=== PATIENT | female | born 1970 | race Caucasian/White ===

== ENCOUNTER 2020-11-16 10:39 | Emergency (ER) | payer OTHER ==
[~2020-11-16] VITALS: Ht 152.4 cm; Wt 45.4 kg
[2020-11-16 10:49] VITALS: BP 100/53
--- NOTE | 2020-11-16 10:57 | NUR ---
Patient discharged to [facility] in custody Written and verbal after care instructions given.
== END 2020-11-16 10:57 ==
LOC: ER 10:51
DX: Z02.89 Encounter for other administrative examinations (principal); Z59.0 Homelessness

== ENCOUNTER 2021-03-11 12:14 | Inpatient (IN) | payer MEDICARE, OTHER ==
[~2021-03-11] VITALS: Ht 149.9 cm; Wt 40.4 kg
[~2021-03-11 12:14] MED LIST: SORBITOL SOLUTION 30 ML PO ONE
--- NOTE | 2021-03-11 12:21 | NUR ---
PT CLAUDIO PA FROM SNF C/O DIFFUSE ABDOMINAL PAIN W/ NAUSEA. DENIES VOMITING, DENIES DIARRHEA. PT IS AAOX3. GOWNED AND PLACED ON MONITOR. VSS. AWAITING MD HENRIQUEZ.
--- NOTE | 2021-03-11 12:35 | NUR ---
DR ALSTON AT BEDSIDE FOR EVAL.
--- NOTE | 2021-03-11 12:55 | NUR ---
RADIOLOGY AT BEDSIDE FOR CHEST X RAY.
[2021-03-11] MEDS ORDERED: IV NS 0.9% 1,000 ML BAG IV ONE (13:00)
--- NOTE | 2021-03-11 13:02 | NUR ---
PT [facility] RADIOLOGY FOR ABDOMINAL CT SCAN VIA [facility].
[2021-03-11 13:07] LABS: BASOPHILS % (AUTO) 0.3 % (0.0-2.0); EOSINOPHILS % (AUTO) 2.6 % (0.0-6.0); HEMATOCRIT 37 % (33-45); HEMOGLOBIN 12.3 g/dL (11.5-14.8); LYMPHOCYTES # (AUTO) 1.7 /CMM (0.8-4.8); MEAN CORPUSCULAR HGB CONC 33 g/dl (31.0-36.0); MEAN CORPUSCULAR VOLUME 88 fL (82-100); MONOCYTES % (AUTO) 8.1 % (2.0-12.0); NEUTROPHILS # (AUTO) 8.8 /CMM (1.8-8.9); PLATELET COUNT (AUTO) 399 /CMM (150-450); RED BLOOD CELL COUNT(AUTO) 4.21 MIL/uL (4.0-5.2); WHITE BLOOD COUNT (AUTO) 11.8 K/uL (4.3-11.0)
[2021-03-11 13:20] LABS: CALCIUM, SERUM 9.3 mg/dL (8.5-10.1); CREATININE 0.6 mg/dL (0.6-1.3); POTASSIUM 3.5 mmol/L (3.5-5.1)
[2021-03-11 13:25] LABS: BILIRUBIN,DIRECT 0.2 mg/dL (0.0-0.2); BILIRUBIN,TOTAL 0.5 mg/dL (0.2-1.0); TOTAL PROTEIN, SERUM 8.3 g/dL (6.4-8.2)
[2021-03-11 13:41] LABS: BILIRUBIN,URINE SMALL (NEGATIVE); COLOR,URINE YELLOW (YELLOW); LEUKOCYTE ESTERASE ,URINE Negative (NEGATIVE); NITRITE, URINE Negative (NEGATIVE); PROTEIN,URINE 30 mg/dl (NEGATIVE); UGLUCOSE Negative (NEGATIVE)
[2021-03-11 13:53] LABS: BACTERIA,URINE Few /HPF (None Seen); SQUAMOUS EPITHELIAL CELL,UR Few /HPF (None Seen); WBC,URINE 0-2 /HPF (0-3)
--- NOTE | 2021-03-11 13:55 | NUR ---
CALLED RAY FOR READING
--- NOTE | 2021-03-11 14:30 | NUR ---
CALLED RAY FOR THE RADIOLOGIST TO CALL US BACK. DR. KIMBALL
[2021-03-11] MEDS ORDERED: ONDANSETRON HCL/PF 4 MG/2 ML VIAL IVP PRN (15:00)
[2021-03-11] MEDS ORDERED: MAG HYDROX/AL HYDROX/SIMETH 30 ML UDC PO PRN (15:00)
[2021-03-11] MEDS ORDERED: Z GUARD REMEDY 2 OZ OINT TP PRN (15:00)
[2021-03-11] MEDS ORDERED: MAGNESIUM CITRATE 296 ML BOTTLE PO ONE (15:00)
[2021-03-11] MEDS ORDERED: MAGNESIUM HYDROXIDE 30 ML UDC PO PRN (15:00)
[2021-03-11] MEDS ORDERED: BISACODYL SUPP (10 MG) 10 MG/SUPP.RECT SUPP.RECT RC ONE (15:00)
[2021-03-11] MEDS ORDERED: ACETAMINOPHEN 325 MG TABLET PO PRN (15:00)
[2021-03-11] MEDS ORDERED: NA PHOS,M-B/NA PHOS,DI-BA 1 EA ENEMA RC PRN (15:00)
[2021-03-11] MEDS ORDERED: BISA10SU11 RC (15:02)
[2021-03-11] MEDS ORDERED: MELA3TAB41 PO (15:02)
[2021-03-11] MEDS ORDERED: NA P133E RC (15:02)
[2021-03-11] MEDS ORDERED: MAGN400T26 PO (15:02)
[2021-03-11] MEDS ORDERED: METH5TAB4 PO (15:02)
[2021-03-11] MEDS ORDERED: ARIP30TA3 PO (15:02)
[2021-03-11] MEDS ORDERED: MAGN400O6 PO (15:02)
[2021-03-11] MEDS ORDERED: FENO54TA PO (15:02)
[2021-03-11] MEDS ORDERED: CHOL50009 PO (15:02)
[2021-03-11] MEDS ORDERED: ACET325T53 PO (15:02)
[2021-03-11] MEDS ORDERED: ALBU8.5H8 IH (15:02)
[2021-03-11] MEDS ORDERED: CYAN-51 PO (15:02)
[2021-03-11] MEDS ORDERED: CLON1TAB12 PO (15:02)
[2021-03-11] MEDS ORDERED: MULT-754 PO (15:02)
--- NOTE | 2021-03-11 15:45 | NUR ---
REPORT GIVEN TO ELIZABETH. AWAITING TRANSFER TO FLOOR.
--- NOTE | 2021-03-11 16:00 | NUR ---
MS/RN PT ADMITTED FROM SNF,WITH ABDOMINAL PAIN.PT IS ON ROOM AIR ,SAT O2-99%.V/S STABLE ,AFEBRILE. MED SURGE STATUS.IV-RIGHT FA #20.SKIN INTACT.PT IS AMBULATING IN THE ROOM.SKIN INTACT.
[2021-03-11] MEDS: IV NS 0.9% 1,000 ML IV PRN (16:19)
[2021-03-11 16:21] VITALS: BP 112/65
[2021-03-11] MEDS: HYDROCODONE/APAP 5/325MG TABLET PO PRN (16:51)
--- NOTE | 2021-03-11 17:00 | NUR ---
MS/RN PT C/O OF ABDOMINAL PAIN.NORCO PO GIVEN ORDERED.
[2021-03-11] MEDS ORDERED: PEG 3350/NA SULF,BICARB,CL/KCL 4,000 ML BOTTLE PO ONE (18:30)
--- NOTE | 2021-03-11 18:48 | NUR ---
MS/RN PT HAS 3 BM.PM CARE PROVIDED.WILL SIGN CONSENTS FOR COLONOSCOPY AND EGD LATTER.PT IS AGITATED.SCREAMING ON NURSES.
--- NOTE | 2021-03-11 19:30 | NUR ---
RN NOTE RECEIVED PATIENT IN BED, AO X 3-4, IN NO S/SX OF ACUTE DISTRESS AT THIS TIME. NO SOB NOTED. PATIENT'S BREATHING IS EVEN AND UNLABORED. SATURATION 97% ON ROOM AIR, SR ON THE MONITOR, HR IS 83. NOTED IV SITE AT RAC 20G, PATENT AND FLUSHING WELL, NO S/S OF INFECTION OR INFILTRATION, WITH IV FLUID OF NS INFUSING AT 75 ML/HR. SAFETY MEASURES IMPLEMENTED. PATIENT BED ALARM IS ON. HEAD OF BED ELEVATED. BED IS LOCKED, IN LOWEST POSITION AND SIDE RAILS UP. CALL LIGHT WITHIN REACH OF THE PATIENT. WILL CONTINUE TO MONITOR AND REASSESS FOR ANY CHANGES.
[2021-03-11 20:00] VITALS: BP 129/76
--- NOTE | 2021-03-11 21:30 | NUR ---
RN NOTE PT C/O ABDOMINAL PAIN. STATED, NORCO INEFFECTIVE, REQUESTING FOR IBUPROFEN INSTEAD SHE USED IT BEFORE AND WAS EFFECTIVE FOR HER. DR CONNELL WAS NOTIFIED. ORDERS RECEIVED FOR IBUPROFEN 400 MG PRN Q6H FOR MILD PAIN1-3. TREASURY ASSISTANT MADE AWARE
[2021-03-11] MEDS ORDERED: IBUPROFEN 400 MG TABLET PO PRN (22:00)
--- NOTE | 2021-03-11 23:45 | NUR ---
RN NOTE PT C/O 08/09 ABDOMINAL PAIN. STATED, ORAL MEDICATIONS SHE WAS GIVEN WERE INEFFECTIVE AND NOW REQUESTING FOR IV PAIN MEDS. DR CONNELL WAS NOTIFIED. ORDERS RECEIVED FOR MORPHINE 2 MG IV Q6H PRN. RECAPPER MADE AWARE
[2021-03-12] MEDS: MORPHINE SULFATE INJ 2 MG/ML DISP.SYRIN IV PRN ×3 (00:08→20:13)
[2021-03-12] MEDS: IV NS 0.9% 1,000 ML IV PRN ×2 (05:38→20:00)
[2021-03-12 06:20] LABS: BASOPHILS % (AUTO) 0.3 % (0.0-2.0); EOSINOPHILS % (AUTO) 3.6 % (0.0-6.0); HEMATOCRIT 37 % (33-45); HEMOGLOBIN 12.4 g/dL (11.5-14.8); LYMPHOCYTES # (AUTO) 1.3 /CMM (0.8-4.8); MEAN CORPUSCULAR HGB CONC 34 g/dl (31.0-36.0); MEAN CORPUSCULAR VOLUME 88 fL (82-100); MONOCYTES # (AUTO) 0.8 /CMM (0.1-1.30); MONOCYTES % (AUTO) 9.5 % (2.0-12.0); NEUTROPHILS # (AUTO) 5.8 /CMM (1.8-8.9); NEUTROPHILS % (AUTO) 70.6 % (43.0-81.0); PLATELET COUNT (AUTO) 390 /CMM (150-450); RED BLOOD CELL COUNT(AUTO) 4.21 MIL/uL (4.0-5.2); WHITE BLOOD COUNT (AUTO) 8.3 K/uL (4.3-11.0)
[2021-03-12 06:49] LABS: CALCIUM, SERUM 8.7 mg/dL (8.5-10.1); CREATININE 0.5 mg/dL (0.6-1.3); MAGNESIUM 2.4 mg/dL (1.8-2.4); POTASSIUM 3.6 mmol/L (3.5-5.1)
--- NOTE | 2021-03-12 07:16 | NUR ---
RN NOTE PATIENT REMAINS IN ROOM, NO SIGN IF ACUTE DISTRESS NOTED. NS INFUSING AT 75 ML/HR VIA RAC 20G. PATIENT SCHEDULED FOR EGD/COLONOSCOPY TODAY, NPO STATUS MAINTAINED. SAFETY MEASURES IMPLEMENTED. ENDORSED TO ELISABETH SANCHEZ FOR CONTINUATION OF CARE.
--- NOTE | 2021-03-12 07:30 | NUR ---
MS LAURA AM NOTE RECEIVED PATIENT IN BED, AO X 3-4, ON ROOM AIR. NO ACUTE DISTRESS, NO SOB NOTED. PATIENT'S BREATHING IS EVEN AND UNLABORED. SATURATION 97%. DENIES PAIN, IV SITE AT RAC 20G, WITH NS AT 75 ML/HR, SITE CLEAR , NPO FOR NOW. FOR SCHEDULED SGD AND COLONOSCOPY. CONSENT IN CHART, SAFETY MEASURES IN PLACE, BED ALARM IS ON. HEAD OF BED ELEVATED. BED IS LOCKED, IN LOWEST POSITION AND SIDE RAILS UP. CALL LIGHT WITHIN REACH OF THE PATIENT. WILL CONTINUE TO MONITOR AND REASSESS FOR ANY CHANGES.
[2021-03-12] MEDS: PANTOPRAZOLE 40 MG TABLET.DR PO SCH (07:56)
[2021-03-12 08:00] VITALS: BP 139/76
--- NOTE | 2021-03-12 09:30 | NUR ---
RN NOTES DUE MEDS GIVEN STILL DRINKING NULYTELY.
[2021-03-12] MEDS ORDERED: ANESTHESIA TRAY IN PYXIS 1 EA TRAY MC ONE (11:49)
[2021-03-12] MEDS ORDERED: SORBITOL SOLUTION 30 ML PO ONE (12:00)
--- NOTE | 2021-03-12 13:16 | NUR ---
RN NOTES PATIENT PICKED UP FOR SCHEDULED EGD AND COLONOSCOPY, ALSO DR. HENSON NOTIFIED OF BLOOD CULTURE RESULT POSITIVE FOR GRAM + COCCI IN CLUSTERS.
[2021-03-12 16:47] VITALS: BP 114/73
--- NOTE | 2021-03-12 16:47 | NUR ---
RN NOTES PATIENT BACK FROM SURGERY. POST EGD AND COLONOSCOPY BY DR. GAMINO. PATIENT AAOX3, ON ROOM AIR, NOT IN ANY DISTRESS, NO SOB, DENIES PAIN, POST OP ORDERS CARRIED OUT. PLACED ON REGULAR DIET. WILL CONT TO MONITOR. VS BP 114/73 HR 91 RR 18 O2 SAT 95% TEMP 98.5
--- NOTE | 2021-03-12 18:29 | NUR ---
RN NOTES ALL NEEDS MET. PT RESTING. VS WNL. NOT IN ANY DISTRESS. SAFETY MEASURES IN PLACE. NO OTHER SIGNIFICANT CHANGE IN CONDITION NOTED
--- NOTE | 2021-03-12 19:30 | NUR ---
RN OPENING NOTES: RECEIVED PT A/OX3-4 IN BED RESTING COMFORTABLY. PATIENT IN NO S/SX OF ACUTE DISTRESS AT THIS TIME. NO SOB NOTED. PATIENT'S BREATHING IS EVEN AND UNLABORED. PATIENT IS ON ROOM AIR; TOLERATING WELL. PATIENT ON MS STATUS; AMBULATORY. PATIENT ON REGULAR DIET; TOLERATES WELL. NOTED IV SITE ON R AC#20; PATENT, INTACT AND FLUSHING WELL; NO S/S OF INFECTION OR INFILTRATION. WITH IV FLUID RUNNING ORDERED. SAFETY MEASURES HAVE BEEN PROVIDED AND IMPLEMENTED. PATIENT BED ALARM IS ON. HEAD OF BED ELEVATED. BED IS LOCKED, IN LOWEST POSITION AND SIDE RAILS UP. CALL LIGHT WITHIN REACH OF THE PATIENT. APPLICABLE ISOLATION PRECAUTIONS IN PLACE. WILL CONTINUE TO MONITOR AND REASSESS FOR ANY CHANGES AND WILL CARRY OUT ANY ONGOING AND ACTIVE MD ORDER.
[2021-03-12 20:00] VITALS: BP 119/58
--- NOTE | 2021-03-12 20:00 | NUR ---
RN NOTES NOTED IV LINE ON R AC TO BE LEAKING AND NON-PATENT. FACILITATED CHANGE AND REINSERTION OF IV LINE @ L HAND #22; SECURED, INTACT AND FLUSHING WELL. WILL CONTINUE TO MONITOR AND ASSESS THROUGHOUT THE SHIFT
--- NOTE | 2021-03-12 20:50 | NUR ---
RN NOTES RECEIVED CALL FROM LAB' SPOKE WITH [facility] ENDORSED BLOOD CX RESULT: GRAM POSITIVE COCCI IN CLUSTERS SEEN ON GRAM STAIN. WILL INFORM ALBERTA BENSON. ALBERTA BENSON INFORMED; AWAITING FOR ANY ORDERS. Addendum: 03/12/21 at 2130 by PRACHI FLORENTINO RN ALBERTA BENSON ORDERED VANCOMYCIN TO START 2129. WILL CARRY OUT ORDERED.
[2021-03-12] MEDS ORDERED: VANCOMYCIN 1 GM VIAL ONE (21:16)
[2021-03-12] MEDS ORDERED: VANCOMYCIN 0.75 GM in IV NS 0.9% 250 ML IV ONE (21:30)
--- NOTE | 2021-03-12 21:31 | NUR ---
RN NOTES STOCK ON HAND VANCO 1GM; WILL ONLY GIVE .75GM ORDERED. BUZZSAW OPERATOR WELL AWARE.
--- NOTE | 2021-03-12 22:41 | NUR ---
RN NOTES NO CHANGE IN PATIENT CONDITION AT THIS TIME PATIENT VITALS STABLE, NO SIGNS OF ACUTE RESPIRATORY DISTRESS. WILL CONTINUE TO MONITOR AND REASSESS FOR ANY CHANGES THROUGHOUT THE SHIFT.
--- NOTE | 2021-03-13 03:30 | NUR ---
RN NOTES PATIENT REMAINS IN NO ACUTE RESPIRATORY DISTRESS AT THIS TIME, NO CHANGES TO CONDITION/STATUS. AM PATIENT CARE DONE. WILL CONTINUE TO MONITOR AND REASSESS FOR ANY CHANGES THROUGHOUT THE SHIFT
[2021-03-13] MEDS: MORPHINE SULFATE INJ 2 MG/ML DISP.SYRIN IV PRN (03:49)
[2021-03-13 04:00] VITALS: BP 146/90
[2021-03-13] MEDS: HYDROCODONE/APAP 5/325MG TABLET PO PRN (06:22)
--- NOTE | 2021-03-13 06:50 | NUR ---
RN CLOSING NOTE: PATIENT REMAINS IN ROOM IN NO SIGNS OF RESPIRATORY DISTRESS, PATIENT STILL ON ROOM AIR;TOLERATING WELL SATURATING @ >95% SP02. SAFETY MEASURES IMPLEMENTED, BED IN LOWEST POSITION, LOCKED, SIDE RAILS UP, CALL LIGHT WITHIN REACH. ALL NEEDS AND ORDERS ADDRESSED DURING THE SHIFT. IV ACCESS MAINTAINED INTACT, SECURED AND FLUSHING WELL. ALL DUE MEDS GIVEN ORDERED & SCHEDULED ; PATIENT TOLERATED WELL. PATIENT KEPT CLEAN AND COMFORTABLE WITHIN THE SHIFT. PATIENT ENDORSED TO INCOMING SHIFT RN WITH STABLE VITAL SIGN AND FOR CONTINUITY OF CARE.
--- NOTE | 2021-03-13 07:30 | NUR ---
RN OPENING NOTE PT SITTING IN CHAIR, A/Ox3 BREATHING ON RA SPO2 93%, NO SIGNS OF RESP DISTRESS OR SOB, BREATHING EVEN AND UNLABORED. PT DENIES PAIN AT THIS MOMENT. PT IS AMBULATORY WITH STEADY GAIT, NO ASSISTANCE NEEDED. PT HAS RAC #20 FLUSHED, INTACT AND PATENT, NO S/S OF INFECTION/INFILTRATION. ALL PT SAFETY PRECAUTIONS IN PLACE, WILL CONT TO MONITOR
[2021-03-13 08:00] VITALS: BP 143/73
[2021-03-13] MEDS ORDERED: VANCOMYCIN 500 MG in IV D5W 100 ML IV SCH (08:00)
[2021-03-13] MEDS ORDERED: DOCU-141 PO (08:48)
[2021-03-13] MEDS: PANTOPRAZOLE 40 MG TABLET.DR PO SCH (08:55)
[2021-03-13] MEDS ORDERED: VANCOMYCIN 1 GM in IV D5W 250 ML IV SCH (09:00)
[2021-03-13 12:00] VITALS: BP 129/73
--- NOTE | 2021-03-13 14:30 | NUR ---
RN NOTE PT DISCHARGED IN STABLE CONDITION WITH ALL BELONGINGS. REPORT GIVEN TO EMT
== END 2021-03-13 14:43 | DRG 391 ==
LOC: ER 12:23 → MED 15:40 → MEDSG1 15:46
PROVIDERS: ADMIT Internal Medicine; ATTEND Internal Medicine
PROC: 0DJD8ZZ Inspection of Lower Intestinal Tract, Via Natural or Artificial Opening Endoscopic (ICD-10-PCS; principal; 2021-03-11)
PROC: 0DJ08ZZ Inspection of Upper Intestinal Tract, Via Natural or Artificial Opening Endoscopic (ICD-10-PCS; 2021-03-12)
DX: K91.2 Postsurgical malabsorption, not elsewhere classified (principal); E43 Unspecified severe protein-calorie malnutrition; Z68.1 Body mass index [BMI] 19.9 or less, adult; K59.00 Constipation, unspecified; Y84.9 Medical procedure, unspecified as the cause of abnormal reaction of the patient, or of later complication, without mention of misadventure at the time of the procedure; Y92.9 Unspecified place or not applicable; R13.10 Dysphagia, unspecified; F25.9 Schizoaffective disorder, unspecified; K25.9 Gastric ulcer, unspecified as acute or chronic, without hemorrhage or perforation; K44.9 Diaphragmatic hernia without obstruction or gangrene; K64.8 Other hemorrhoids; K80.20 Calculus of gallbladder without cholecystitis without obstruction; R63.4 Abnormal weight loss
CPT/HCPCS: 36415; 71045-TC; 80048-TC; 80076-TC; 81001; 83605-TC; 83690-TC; 83735-TC; 84100-TC; 84702-TC; 84703-TC; 85025-TC; 85730-TC; 87040-TC; 87081-TC; C9803; G0378; J2270; J2704; J3370; J7030; J7050; J7060; U0003